=== PATIENT | female | born 1950 | race Caucasian/White ===

== ENCOUNTER 2021-02-27 08:26 | Day surgery (SDC) | payer OTHER, MEDICARE ==
[2021-02-27 08:53] VITALS: BMI 18.1
[2021-02-27] MEDS ORDERED: PROPOFOL 20 ML ONE ×6 (09:45)
[2021-02-27 11:05] VITALS: TEMP 98
[2021-02-27 11:07] VITALS: BP 118/56; PULSE 71
== END 2021-02-27 11:08 | disposition home or self-care (01) ==
LOC: FASU-ENDO 08:26
PROVIDERS: ATTEND Internal Medicine Gastroenterology
PROC: 0DB98ZX Excision of Duodenum, Via Natural or Artificial Opening Endoscopic, Diagnostic (ICD-10-PCS; 2021-02-27)
PROC: 0DB78ZX Excision of Stomach, Pylorus, Via Natural or Artificial Opening Endoscopic, Diagnostic (ICD-10-PCS; 2021-02-27)
PROC: 0DJD8ZZ Inspection of Lower Intestinal Tract, Via Natural or Artificial Opening Endoscopic (ICD-10-PCS; principal; 2021-02-27 09:46)
DX: Z12.11 Encounter for screening for malignant neoplasm of colon (principal); K29.50 Unspecified chronic gastritis without bleeding; Z80.0 Family history of malignant neoplasm of digestive organs; R10.13 Epigastric pain
CPT/HCPCS: 43239; G0105; 88305-TC; 88342-TC

== ENCOUNTER 2024-02-19 07:15 | Day surgery (SDC) | payer OTHER, MEDICARE ==
[2024-02-14 11:50] VITALS: BMI 19.1
[2024-02-19] MEDS ORDERED: NEO/POLYMYX B SULF/DEXAMETH OPHTHALMIC 5ML BOTTLE ONE (07:22)
[2024-02-19] MEDS ORDERED: LIDOCAINE 1% P/F 10 MG/ML VIAL ONE (07:22)
[2024-02-19] MEDS ORDERED: CARBACHOL 0.01% INTRA-OCULAR 1.5 ML VIAL ONE (07:22)
[2024-02-19] MEDS ORDERED: EPINEPHrine/PF 1 MG/1 ML (1:1,000) AMPULE ONE (07:22)
[2024-02-19] MEDS ORDERED: BSS (NA/CA/MG/K) BALANCED SALT SOLUTION OPHTH SOLN 15 ML BOTTLE ONE (07:22)
[2024-02-19] MEDS ORDERED: TETRACAINE 0.5% OPHTH SOLN 2 ML BOTTLE ONE (07:22)
[2024-02-19] MEDS: CYCLOPENTOLATE 2% OPHTH SOLN 2 ML BOTTLE ONE (07:35)
[2024-02-19] MEDS: CIPROFLOXACIN 0.3% EYE DROPS 5 ML BOTTLE ONE (07:35)
[2024-02-19] MEDS: TROPICAMIDE 1% OPHTH SOLN 15 ML BOTTLE ONE (07:35)
[2024-02-19] MEDS: PHENYLEPHRINE 2.5% OPTHALMIC DROP 2ML BOTTLE ONE (07:35)
[2024-02-19] MEDS ORDERED: MIDAZOLAM HCL 2 MG/2 ML SINGLE DOSE VIAL ONE (08:40)
[2024-02-19 09:26] VITALS: TEMP 98
[2024-02-19 09:28] VITALS: BP 118/62; PULSE 63; RESP 19
== END 2024-02-19 09:51 | disposition home or self-care (01) ==
LOC: FASU 07:15
PROVIDERS: ATTEND Ophthalmology
PROC: 08RK3JZ Replacement of Left Lens with Synthetic Substitute, Percutaneous Approach (ICD-10-PCS; principal; 2024-02-19 08:48)
DX: H26.8 Other specified cataract (principal)
CPT/HCPCS: 66984; V2632

== ENCOUNTER 2024-04-15 06:26 | Day surgery (SDC) | payer OTHER, MEDICARE ==
[2024-04-09 12:19] VITALS: BMI 19.1
[2024-04-15] MEDS: TROPICAMIDE 1% OPHTH SOLN 15 ML BOTTLE ONE (06:50)
[2024-04-15] MEDS: PHENYLEPHRINE 2.5% OPTHALMIC DROP 2ML BOTTLE ONE (06:50)
[2024-04-15] MEDS: CYCLOPENTOLATE 2% OPHTH SOLN 2 ML BOTTLE ONE (06:50)
[2024-04-15] MEDS: CIPROFLOXACIN 0.3% EYE DROPS 5 ML BOTTLE ONE (06:50)
[2024-04-15 06:54] VITALS: TEMP 97.3
[2024-04-15] MEDS ORDERED: EPINEPHrine/PF 1 MG/1 ML (1:1,000) AMPULE ONE (07:17)
[2024-04-15] MEDS ORDERED: LIDOCAINE 1% P/F 10 MG/ML VIAL ONE (07:17)
[2024-04-15] MEDS ORDERED: TETRACAINE 0.5% OPHTH SOLN 2 ML BOTTLE ONE (07:18)
[2024-04-15] MEDS ORDERED: BSS (NA/CA/MG/K) BALANCED SALT SOLUTION OPHTH SOLN 15 ML BOTTLE ONE (07:18)
[2024-04-15] MEDS ORDERED: NEO/POLYMYX B SULF/DEXAMETH OPHTHALMIC 5ML BOTTLE ONE (07:18)
[2024-04-15] MEDS ORDERED: CARBACHOL 0.01% INTRA-OCULAR 1.5 ML VIAL ONE (07:18)
[2024-04-15] MEDS ORDERED: ACETYLCHOLINE 1:100 INTRA-OCUL 20 MG/2 ML KIT ONE (07:25)
[2024-04-15 08:45] VITALS: PULSE 70; RESP 18
[2024-04-15 09:05] VITALS: BP 110/64
== END 2024-04-15 09:05 | disposition home or self-care (01) ==
LOC: FASU 06:26
PROVIDERS: ATTEND Ophthalmology
PROC: 08RJ3JZ Replacement of Right Lens with Synthetic Substitute, Percutaneous Approach (ICD-10-PCS; principal; 2024-04-15 08:23)
DX: H26.8 Other specified cataract (principal)
CPT/HCPCS: 66984; V2632